=== PATIENT | female | born 1990 | race Asian ===

== ENCOUNTER 2021-03-16 11:42 | Emergency (ER) | payer MEDICAID ==
[~2021-03-16] VITALS: Ht 154.9 cm; Wt 77.3 kg
[2021-03-16 12:30] VITALS: BP 151/90
== END 2021-03-16 14:38 | disposition left against medical advice (07) ==
LOC: EMS 11:42
DX: Z20.822 Contact with and (suspected) exposure to COVID-19 (principal); Z53.21 Procedure and treatment not carried out due to patient leaving prior to being seen by health care provider